=== PATIENT | male | born 1965 | race Caucasian/White ===

== ENCOUNTER → 2018-05-12 | Outpatient (CLI) | payer BC ==
[~2018-05-12] MED LIST: ASPI325T8 PO; ATOR10TA60 PO; EMPA25TA PO; IOHEXOL 180 MG/ML 10 ML VIAL. ONE; LEVO75TA5 PO; METF10007 PO; OMEG1CAP6 PO; OMEP20CA9 PO; SITA100T PO; methylPREDNISolone ACETATE 40 MG/ML VIAL. ONE; methylPREDNISolone ACETATE 80 MG/ML VIAL. ONE
--- NOTE | 2018-05-12 15:38 | PAIN ---
DATE OF SERVICE: 05/12/2018 INITIAL CONSULTATION FOR PAIN CLINIC CHIEF COMPLAINT: Low back and right lower extremity pain. HISTORY OF PRESENT ILLNESS: This is a 53-year-old male who presents with history of pain for about a year, worse over the past month or so in the low back and right lower extremity, radiating to the posterior gluteus, posterior lateral thigh, anterior thigh, medial thigh, medial lower leg, worse with walking, standing and change in positions. The patient reports it is worse in the evening as the day goes on. Occasionally, it wakes him from sleep, but not every night, does not affect his bowel or bladder control, but does affect his ability to walk, especially with standing and initially standing when he is up from a seated position is difficult. The patient reports no symptoms on the left lower extremity, no loss of motor function, but significant fatigability with the right leg with walking and standing. The patient did have some chiropractic treatment. He is still doing some exercises, which is not significantly helpful, has not had any formal physical therapies or other modalities. The patient did have MRI scan of the lumbar spine showing at L4-L5 a small annular disk bulge lateralized to the left, facet hypertrophy resulting in moderate to severe narrowing of left neural foramen and mild narrowing of the central canal and right neural foramen. The patient reports a disability rate from 0-10, 10 being the worst, is a 5 with family and home responsibilities and occupation, 8 with recreational activities, 6 with social activity, sexual behavior, self-care and life support activities. The patient reports no loss of motor function once again, but significant fatigability worse with time. PAST MEDICAL HISTORY: Significant for hearing loss, type 2 diabetes, arthritis. PREVIOUS SURGERY: Include two cervical diskectomies and fusion in 2011 and then again in 2012, previous tonsillectomy, cholecystectomy and appendectomy. CURRENT MEDICATIONS: Include Januvia, metformin, levothyroxine, Jardiance, omega fish oil, omeprazole, atorvastatin. ALLERGIES: The patient has no known drug allergies. FAMILY HISTORY: Significant for no major medical conditions or problems that he is aware of. SOCIAL HISTORY: The patient is not a smoker, drinks alcohol occasionally, maybe 2 drinks a day at the most. The patient is not using any illegal, illicit or recreational drugs. 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 REVIEW OF SYSTEMS: The patient's review of systems is positive for those items mentioned in history of present illness. All systems reviewed and otherwise negative. It is complete, full and well documented on the patient's chart. PHYSICAL EXAMINATION: VITAL SIGNS: The patient's blood pressure 144/95, pulse 79, respirations 16, temperature 98.2 degrees Fahrenheit, height is 6 feet, weight is 255 pounds. GENERAL: The patient is awake, alert, oriented, appropriate, very pleasant demeanor. HEENT: Head shows normocephalic, atraumatic. Extraocular movements are intact and symmetrical. Oral cavity: Mucous membranes moist and pink. Dentition is intact. NECK: Shows anterior throat supple without palpable lymphadenopathy noted. Swallow reflex is symmetrical. CHEST: Shows normal with inspection. Breath sounds clear to auscultation bilaterally. HEART: Shows S1, S2 clear. No murmurs auscultated. ABDOMEN: Soft, nontender, nondistended. No palpable organomegaly is noted. No rebound or guarding demonstrated. BACK: Shows spine grossly in the midline. Normal appearing thoracic kyphosis, cervical lordotic curvature and lumbar lordotic curvature. Lumbar paraspinous muscle shows symmetrical on inspection, on palpation shows some moderate tenderness diffusely bilaterally in the low lumbar distribution, but without radiation. The patient shows no tenderness over the spinous processes, sacrum or sacroiliac regions. The patient has good rotational motion of lumbar spine, both laterally greater than 10 degrees right and left as well as extension greater than 10 degrees, forward flexion 45 degrees without significant pain reported. EXTREMITIES: Lower extremities show deep tendon reflexes at 2+ in the patellar, 1+ tendo-calcaneus tendons are equal. Motor exam is approximately 4 on a scale of 5 with right ankle and 5/5 on the left, 5/5 quadriceps and hamstring flexion, right and left. Peripheral pulses are 1+ posterior tibial. No peripheral edema is noted bilaterally. The patient's straight leg raise is noted to be mildly positive on the right at about 40 degrees, decreased with knee flexion, left side is negative. Gaenslen's and Joe's maneuvers are negative bilaterally as well. The patient is able to stand and stand on his toes without significant difficulty or loss of balance, walks with a normal appearing gait, does not appear to favor the right or left lower extremity significantly, not using any assistive device to ambulate. The patient's skin is warm and dry, good turgor. No edema. No sores, rashes or bruising. IMPRESSION: This is a 53-year-old male with, 1. Approximate 1-year history of low back and right lower extremity pain in a radicular fashion. 2. MRI scan of lumbar spine as noted. 3. Type 2 diabetes. 4. Arthritis. PLAN: Options were discussed with the patient including conservative medical management, physical therapy, interventional techniques and and he would like to pursue interventional techniques. We discussed a lumbar epidural steroid injection using description as well as anatomical models to describe the procedure. Risks were then discussed including, but not limited to bleeding, infection, possibility of epidural hematoma, subsequent neurological compromise, dural puncture, headaches, spinal cord and/or nerve damage, side effects of steroid medication and poor results regarding pain control. The patient understands and wished to proceed. The patient will return to the clinic in approximately 2 weeks for followup, was counseled on return appointment, activity level and side effects to be aware of. DIAGNOSES: Lumbar radiculopathy with lumbar degenerative disk disease. PROCEDURES: Lumbar epidural steroid injection, translaminar approach at L4-L5 level using C-arm fluoroscopic guidance under sterile prep and drape using local anesthetic. MEDICATION INJECTED: A total of 120 mg Depo-Medrol plus 10 mL of preservative-free normal saline and 2 mL of Isovue for contrast. CONDITION AT DISCHARGE: Stable. The patient tolerated the procedure well, had no complications. PAOLA KEATING MD DR: GAYATRI/anaid JOB#: [id number] / [id number] CAITLIN Beverly APRN
== END | disposition home or self-care (01) ==
LOC: PNCL 08:00
PROVIDERS: ATTEND Anesthesiology
DX: M51.16 Intervertebral disc disorders with radiculopathy, lumbar region (principal); E11.9 Type 2 diabetes mellitus without complications; Z88.0 Allergy status to penicillin; M19.90 Unspecified osteoarthritis, unspecified site; H91.90 Unspecified hearing loss, unspecified ear; Z90.49 Acquired absence of other specified parts of digestive tract; Z98.890 Other specified postprocedural states; Z79.84 Long term (current) use of oral hypoglycemic drugs; Z79.899 Other long term (current) drug therapy; Z98.1 Arthrodesis status; Z72.89 Other problems related to lifestyle
CPT/HCPCS: 62323; J1030; J1040; Q9965

== ENCOUNTER → 2018-06-09 | Outpatient (CLI) | payer BC ==
[~2018-06-09] MED LIST changes: -IOHEXOL 180 MG/ML 10 ML VIAL. ONE; -methylPREDNISolone ACETATE 40 MG/ML VIAL. ONE; -methylPREDNISolone ACETATE 80 MG/ML VIAL. ONE
--- NOTE | 2018-06-09 10:07 | PAIN ---
DATE OF SERVICE: 06/09/2018 PROGRESS NOTE FOR PAIN CLINIC DIAGNOSIS: Lumbar radiculopathy with lumbar degenerative disk disease. HISTORY OF PRESENT ILLNESS: The patient is a 53-year-old male who returns for followup status post lumbar epidural steroid injection x 1. The patient reports 100% improvement in the back and right lower extremity pain has completely gone. The patient reports it has been gone about 2 days after the procedure. The patient reports the pain is 0 on a scale of 10 at average, worst and its least. He has increased his activity with greater ease and comfort, walking, able to do work activities, household activities, traveling, sleeping at night, does not awaken him from sleep. No pain in the leg and no pain in the back. No new bowel or bladder incontinence or other complaints. The patient is very pleased with his progress and reports no new changes or other complaints. PHYSICAL EXAMINATION: VITAL SIGNS: The patient's blood pressure 152/96, pulse 79, respirations 18 and temperature 98.0 degrees Fahrenheit. Height 6 feet and weight is 252 pounds. GENERAL: The patient is awake, alert, oriented, appropriate and very pleasant demeanor. HEENT: Head shows normocephalic and atraumatic. Extraocular movements are intact and symmetrical. Oral cavity: Mucous membranes moist and pink. Dentition is intact. NECK: Shows anterior throat supple without palpable lymphadenopathy noted. Swallow reflex symmetrical. CHEST: Shows normal on inspection. Breath sounds clear to auscultation bilaterally. HEART: Shows S1 and S2 clear. No murmurs auscultated. ABDOMEN: Soft, nontender and nondistended. No palpable organomegaly is noted. No rebound or guarding demonstrated. BACK: Shows spine grossly in the midline. Normal appearing thoracic kyphosis and lumbar lordotic curvature. Lumbar paraspinous muscle shows symmetrical on inspection and on palpation shows some moderate tenderness diffusely but only diffusely with palpation. The patient has good rotational motion. No radiation of pain, both laterally as well as extension and flexion. EXTREMITIES: Lower extremities show deep tendon reflexes at 2+ in the patellar, 1+ tendo-calcaneus tendons. Motor exam is strong with 5/5 dorsiflexion, extension, quadriceps and hamstring flexion symmetrical on exam today. The patient shows 1+ posterior tibial pulses and no peripheral edema bilaterally. Options were discussed with the patient. The patient's old chart was reviewed as well as his current medication regimen updated. Current review of systems updated today as well. We will hold on any further injections at that time. The patient did quite well and was encouraged to increase his activity as tolerated. We talked about body mechanics as well as lifting precautions and exercise, stretching and strengthening exercises as well. The patient will continue with these and follow up at this time on as needed basis. PAOLA KEATING MD DR: GAYATRI/anaid JOB#: [id number] / [id number]
== END | disposition home or self-care (01) ==
LOC: PNCL 08:39
PROVIDERS: ATTEND Anesthesiology
DX: M51.16 Intervertebral disc disorders with radiculopathy, lumbar region (principal)
CPT/HCPCS: G0463

== ENCOUNTER → 2018-10-12 | Outpatient (CLI) | payer BC ==
[~2018-10-12] MED LIST changes: +OMEP20CA10 PO; -OMEP20CA9 PO
--- NOTE | 2018-10-12 14:10 | CARD ---
MR#: [id number] Date of Study: 10/12/2018 Ordering Physician: AIDEN AVENDAÑO, Referring Physician: AIDEN AVENDAÑO, Tech: Robina Uribe JEREMY APPROVED REPORT EXAM: Two-dimensional and M-mode echocardiogram with Doppler and color Doppler. Other Information Quality : Good INDICATION Pulmonary Embolism 2D DIMENSIONS RVDd2.6 (2.9-3.5cm)Left Atrium(2D)4.4 (1.6-4.0cm) IVSd1.0 (0.7-1.1cm)Aortic Root(2D)3.1 (2.0-3.7cm) LVDd4.6 (3.9-5.9cm)LVOT Diameter2.5 (1.8-2.4cm) PWd1.0 (0.7-1.1cm)LVDs3.5 (2.5-4.0cm) FS (%) 24.2 %SV47.8 ml LVEF(%)50.0 (>50%) Aortic Valve AoV Peak Elias.99.3cm/sAoV VTI17.6cm AO Peak GR.3.9mmHgLVOT Peak Elias.102.6cm/s AO Mean GR.2mmHgAVA (VMAX)4.90cm2 CARYL (VTI)5.70cm2 Mitral Valve MV E Oeyheddj26.7cm/sMV DECEL ZITA028no MV A Ldtegviq93.6cm/sE/A Ratio0.9 Tricuspid Valve TR P. Jwhmqahh840ke/sRAP LUTHGTRR9lwKp TR Peak Gr.34yuTqONCO94maYt Pulmonary Vein S1 Ltufwhmx11.2cm/sD2 Ephxtpas51.2cm/s LEFT VENTRICLE The left ventricle is normal size. There is normal left ventricular wall thickness. The left ventricu lar systolic function is normal. The Ejection Fraction is 50-55%. There is normal LV segmental wall m otion. Transmitral Doppler flow pattern is Grade I-abnormal relaxation pattern. RIGHT VENTRICLE The right ventricle is normal size. The right ventricular systolic function is normal. ATRIA The left atrium is mildly dilated. The right atrium size is normal. The interatrial septum is intact with no evidence for an atrial septal defect or patent foramen ovale as noted on 2-D or Doppler imagi ng. AORTIC VALVE The aortic valve is calcified but opens well. Doppler and Color Flow revealed no significant aortic r egurgitation. There is no significant aortic valvular stenosis. MITRAL VALVE The mitral valve is calcified but opens well. There is no evidence of mitral valve prolapse. There is no mitral valve stenosis. Doppler and Color Flow revealed no mitral valve regurgitation noted. TRICUSPID VALVE The tricuspid valve is normal in structure and function. Doppler and Color Flow revealed trace tricus pid regurgitation. The PA pressure was estimated at 27 mmHg. There is no tricuspid valve stenosis. PULMONIC VALVE The pulmonic valve is not well visualized. Doppler and Color Flow revealed no pulmonic valvular regur gitation. There is no pulmonic valvular stenosis. GREAT VESSELS The aortic root is normal in size. The ascending aorta is normal in size. The IVC is normal in size a nd collapses >50% with inspiration. PERICARDIAL EFFUSION There is no evidence of significant pericardial effusion. Critical Notification Critical Value: No <Conclusion> The left ventricular systolic function is normal. The Ejection Fraction is 50-55%. There is normal LV segmental wall motion. Doppler and Color Flow revealed trace tricuspid regurgitation. The PA pressure was estimated at 27 mmHg. There is no evidence of significant pericardial effusion. Signed by : Ferny Daley, Electronically Approved : 10/12/2018 14:10:26
== END | disposition home or self-care (01) ==
LOC: ECHO 12:31
PROVIDERS: ATTEND Internal Medicine Cardiovascular Disease
DX: I08.0 Rheumatic disorders of both mitral and aortic valves (principal); I26.99 Other pulmonary embolism without acute cor pulmonale
CPT/HCPCS: 93306

== ENCOUNTER → 2018-12-08 | Outpatient (CLI) | payer BC ==
[~2018-12-08] MED LIST changes: +BUPIVACAINE MPF 0.25% 10 ML VIAL. ONE; +IOHEXOL 180 MG/ML 10 ML VIAL. ONE; +methylPREDNISolone ACETATE 80 MG/ML VIAL. ONE
--- NOTE | 2018-12-09 04:16 | PAIN ---
DATE OF SERVICE: 12/08/2018 PROGRESS NOTE FOR PAIN CLINIC DIAGNOSES: 1. Lumbar radiculopathy with lumbar degenerative disk disease. 2. Right knee joint pain with primary osteoarthritis. HISTORY OF PRESENT ILLNESS: The patient is a 53-year-old male who returns for followup status post lumbar epidural steroid injection x 1. The patient reports he did very well with about 100% improvement with the low back pain, this was in 05/2018. The pain still fairly well controlled in the low back itself. His main complaint is right knee is very tender with weightbearing, standing, walking, especially putting all his weight on one leg on his right side with stepping up stairs or curbs. The patient reports it is aching and sharp at the knee, aching into the calf as well as radiating down into the hcavez and the calf with walking and standing. The patient reports in the morning it is not too bad but as the day goes on, he is on his feet and more of the day, it becomes more noticeable, feels full, the pain in the popliteal area as well. The patient reports the pain is 10 on a scale of 10 at its worst, on average in the past week is a 6 and in the past week, it has been 0 at its least and is 0 today with sitting and with standing becomes a 5. The patient reports no new motor or sensory deficits and no new changes. PHYSICAL EXAMINATION: VITAL SIGNS: The patient's blood pressure is 140/98, pulse 75, respirations 18 and temperature 98.0 degrees Fahrenheit. Height is 6 feet and weight is 246 pounds. GENERAL: The patient is awake, alert, oriented, appropriate and very pleasant demeanor. HEENT: Head shows normocephalic and atraumatic. Extraocular movements are intact and symmetrical. Oral cavity: Mucous membranes moist and pink. Dentition is intact. NECK: Shows anterior throat supple without palpable lymphadenopathy noted. Swallow reflex symmetrical. CHEST: Shows normal on inspection. Breath sounds are clear to auscultation bilaterally. HEART: Shows S1 and S2 clear. No murmurs auscultated. ABDOMEN: Soft, nontender and nondistended. No palpable organomegaly is noted. No rebound or guarding demonstrated. BACK: Shows spine grossly in the midline. Normal appearing thoracic kyphosis and lumbar lordotic curvature. Lumbar paraspinous musculature shows symmetrical on inspection with palpation shows some very mild tenderness with deeper palpation in the low lumbar distribution only but only very mild without radiation. The patient shows full rotational motion of the lumbar spine, both laterally as well as extension and flexion without difficulty. EXTREMITIES: The patient's lower extremities show deep tendon reflexes at 2+ in the patellar, 1+ tendo-calcaneus tendons. Motor exam is strong with 5/5 dorsiflexion, extension, quadriceps and hamstring flexion. The patient's right knee shows some mild tenderness with palpation on the lateral aspect of the lateral collateral ligament and some mild tenderness over the medial collateral ligament only mildly so. No specific tenderness in the popliteal fossa. No masses are palpated. The patient does have good popliteal pulses at 2+. No edema is noted. Options were discussed with the patient. The patient's old chart was reviewed as well as his current medication regimen updated. Current review of systems updated today as well. We will proceed with a right intra-articular knee joint injection with fluoroscopic guidance. Risks were discussed including but not limited to bleeding, infection, possibility of intravascular injection sequelae, spread of local anesthetic and numbness, side effects of steroid medication, exposure to fluoroscopy and poor results regarding pain control. The patient understands and wished to proceed. The patient will return to the clinic in approximately 2 weeks or as necessary, I would like to call for his next appointment, was counseled as to return appointment, activity level as well as side effects to be aware of. DIAGNOSIS: Primary osteoarthritis, right knee joint with right knee joint pain. PROCEDURE: Right intra-articular knee joint injection using C-arm fluoroscopic guidance under sterile prep and drape using local anesthetic. MEDICATION INJECTED: A total of 3 mL of 0.25% bupivacaine and 80 mg Depo-Medrol and 2 mL of contrast. CONDITION AT DISCHARGE: Stable. The patient tolerated the procedure well and had no complications. PAOLA KEATING MD DR: GAYATRI/anaid JOB#: [id number] / [id number]
== END ==
LOC: PNCL 11:01
PROVIDERS: ATTEND Anesthesiology
DX: M17.11 Unilateral primary osteoarthritis, right knee (principal); M25.561 Pain in right knee
CPT/HCPCS: 20610; 77002; J1040; J3490; Q9965

== ENCOUNTER → 2019-10-12 | Outpatient (CLI) | payer BC ==
[~2019-10-12] MED LIST changes: -BUPIVACAINE MPF 0.25% 10 ML VIAL. ONE; -IOHEXOL 180 MG/ML 10 ML VIAL. ONE; -OMEP20CA10 PO; +OMEP20CA16 PO; -methylPREDNISolone ACETATE 80 MG/ML VIAL. ONE
--- NOTE | 2019-10-12 08:32 | RAD ---
EXT NON VASC LEFT History: Left leg soft tissue nodule Comparison: None. Findings: Multiple sonographic images of the site of concern of the medial upper left calf region are submitted. In this region, there is oblong focus of relative hyperechogenicity about 1.6 x 0.9 x 1.2 cm in size, somewhat heterogeneous appearance. This is not associated with significant internal vascularity on color Doppler imaging. Impression: 1. There is a hyperechoic, avascular nodule at site of concern of the left medial upper calf region, primary consideration a lipoma. If this is new or getting larger, MRI evaluation could be warranted. Electronically signed by: Adeel Jacobsen MD (10/12/2019 8:29 AM) [id number]
== END ==
LOC: US 07:32
PROVIDERS: ATTEND Nurse Practitioner Family
DX: M79.89 Other specified soft tissue disorders (principal)
CPT/HCPCS: 76881

== ENCOUNTER → 2021-02-22 | Outpatient (CLI) | payer BC ==
--- NOTE | 2021-02-22 12:49 | CARD ---
MR#: [id number] Date of Study: 02/22/2021 Ordering Physician: AIDEN AVENDAÑO, Referring Physician: AIDEN AVENDAÑO, Chloe: Lucio Wall [facility] APPROVED REPORT EXAM: Two-dimensional and M-mode echocardiogram with Doppler and color Doppler. Other Information Quality : AverageHR: 78bpm Rhythm : NSR INDICATION Peripheral Edema RISK FACTORS Hypertension Diabetes 2D DIMENSIONS Left Atrium(2D)3.8 (1.6-4.0cm)IVSd0.9 (0.7-1.1cm) Aortic Root(2D)3.5 (2.0-3.7cm)LVDd4.8 (3.9-5.9cm) LVOT Diameter2.4 (1.8-2.4cm)PWd0.9 (0.7-1.1cm) LVDs2.9 (2.5-4.0cm)FS (%) 40.2 % SV77.7 mlLVEF(%)70.7 (>50%) Aortic Valve AoV Peak Elias.144.8cm/sAoV VTI29.4cm AO Peak GR.8.4mmHgLVOT Peak Elias.105.9cm/s AO Mean GR.4mmHgAVA (VMAX)3.18cm2 Mitral Valve MV E Pemim[place]k88.6cm/sMV E Peak Gr.3mmHg MV DECEL [id number] A Ratqibqd22.2cm/s MV E Mean Gr.2mmHgE/A Ratio0.9 Pulmonary Valve PV Peak Dhojxpmx358.8cm/s Tricuspid Valve TR P. Jfsxneaw067ot/sTR Peak Gr.20mmHg Pulmonary Vein S1 Vkoskklm24.3cm/sD2 Ekkjuvvj28.5cm/s LEFT VENTRICLE The left ventricle is normal size. There is normal left ventricular wall thickness. The left ventricu lar systolic function is mildly reduced. EF 40-45% Basal to mid lateral and inferior wall hypokinesis . Tissue Doppler imaging reveals mild left ventricular diastolic dysfunction. No left ventricle throm bus noted on this study. There is no ventricular septal defect visualized. There is no left ventricul ar aneurysm. There is no mass noted in the left ventricle. RIGHT VENTRICLE The right ventricle is normal size. There is normal right ventricular wall thickness. The right ventr icular systolic function is normal. ATRIA The left atrium size is normal. The right atrium size is normal. The interatrial septum is intact wit h no evidence for an atrial septal defect or patent foramen ovale as noted on 2-D or Doppler imaging. AORTIC VALVE The aortic valve is mildly sclerotic. Doppler and Color Flow revealed no significant aortic regurgita tion. There is no significant aortic valvular stenosis. There is no aortic valvular vegetation. MITRAL VALVE The mitral valve is normal in structure and function. There is no evidence of mitral valve prolapse. There is no mitral valve stenosis. Doppler and Color-flow revealed trace mitral regurgitation. TRICUSPID VALVE The tricuspid valve is normal in structure and function. Doppler and Color Flow revealed no tricuspid valve regurgitation noted. There is no tricuspid valve prolapse or vegetation. There is no tricuspid valve stenosis. PULMONIC VALVE Doppler and Color Flow revealed no pulmonic valvular regurgitation. There is no pulmonic valvular noe nosis. GREAT VESSELS The aortic root is normal in size. The ascending aorta is normal in size. The IVC is normal in size a nd collapses >50% with inspiration. PERICARDIAL EFFUSION There is no pleural effusion. There is no evidence of significant pericardial effusion. Critical Notification Critical Value: No <Conclusion> The left ventricular systolic function is mildly reduced. EF 40-45% Basal to mid lateral and inferior wall hypokinesis. Signed by : Chon Norman, Electronically Approved : 02/22/2021 12:49:00
--- NOTE | 2021-02-22 13:09 | RAD ---
MR#: [id number] Date of Study: 02/22/2021 Ordering Physician: AIDEN AVENDAÑO, Referring Physician: AIDEN AVENDAÑO, Tech: Zac Alvarado MBA, RDMS, RVT, RDCS, RTR APPROVED REPORT Patient Location : OUT-PATIENT Indications Lower Extremity Edema : Bilateral Findings Grayscale images of the saphenofemoral junction and the superficial veins both lower extremities are unremarkable without any evidence of thrombus. Spectral waveform and color duplex imaging was performed. The right greater saphenous vein measured 5.8 mm at the saphenofemoral junction and did not show any reflux. The left greater saphenous vein m easured 5.7 mm at the saphenofemoral junction and did not show any reflux. The lesser saphenous vein bilaterally did not show any significant reflux. Critical Notification Critical Value: No <Conclusion> No significant insufficiency involving bilateral greater and lesser saphenous veins. Signed by : Ferny Daley, Electronically Approved : 02/22/2021 13:09:11
--- NOTE | 2021-02-22 13:12 | RAD ---
MR#: [id number] Date of Study: 02/22/2021 Ordering Physician: AIDEN AVENDAÑO, Referring Physician: AIDEN AVENDAÑO, Tech: Zac Alvarado MBA, RDMS, RVT, RDCS, RTR APPROVED REPORT Bilateral Lower Extremity Venous Study for DVT Patient Location: OUT-PATIENT Indications Lower Extremity Edema: Bilateral Vein Imaging (Right) CFV (R): Compressible SFJ (R): Compressible FEM (R): Compressible POP (R): Compressible DFV (R): Compressible PTV (R): Spontaneous GSV (R): Spontaneous Peroneals (R): Spontaneous Vein Imaging (Left) CFV (L): Compressible SFJ (L): Compressible FEM (L): Compressible POP (L): Compressible DFV (L): Compressible PTV (L): Spontaneous GSV (L): Spontaneous Peroneals (L): Spontaneous Doppler Evaluation (Right) CFV (R): Spontaneous POP (R):Spontaneous Doppler Evaluation (Left) CFV (L):Spontaneous POP (L):Spontaneous Findings Grayscale images of bilateral lower extremity deep veins show normal appearance with fully compressib le veins. Spectral waveforms and color Doppler flow analysis within normal limits. No evidence of d eep venous thrombosis. Critical Notification Critical Value: No <Conclusion> Bilateral lower extremity venous ultrasound did not show any evidence for deep venous thrombosis. Signed by : Ferny Daley, Electronically Approved : 02/22/2021 13:12:27
== END ==
LOC: ECHO 07:35
PROVIDERS: ATTEND Internal Medicine Cardiovascular Disease
DX: I35.8 Other nonrheumatic aortic valve disorders (principal); R60.9 Edema, unspecified; R06.09 Other forms of dyspnea
CPT/HCPCS: 93306; 93970

== ENCOUNTER → 2021-05-30 | Outpatient (CLI) | payer BC ==
--- NOTE | 2021-05-30 17:45 | RAD ---
MR#: [id number] Date of Study: 05/30/2021 Ordering Physician: AIDEN AVENDAÑO, Referring Physician: MANJIT PALACIO Tech: DOMINICK Chaves ARRT (R) (N) APPROVED REPORT Test Type: Exercise Stress Nurse/Tech: Alexandra GUEVARA Test Indications: BARRAZA Cardiac History: ASA, HTN, high cholesterol, DM Medications: ASA, See EMR Medical History: Hx of PE. See list. Resting ECG: SR Resting Heart Rate: 80 bpm Resting Blood Pressure: 136/81mmHg Pretest Chest Pain: No chest pain Nurse/Tech Notes Lungs diminished. Clear. S1S2 heart tones. Stress Symptoms No chest pain or symptoms. POST EXERCISE Reason for Termination: Reached target heart rate Target HR: Yes Max HR: 142 bpm 87% of Maximum Predicted HR: 163 bpm Exercise duration: 8:55 min:sec, 3 Stage Exercise capacity: 10METs Max Blood Pressure: 158/84mmHg Blood Pressure response to exercise: Normal blood pressure response during stress. Heart Rate response to exercise: normal response Chest Pain: No. Arrhythmia: No. ST Change: No. INTERPRETATION Stress EKG Conclusion: No evidence of stress-induced EKG changes Imaging Protocol IMAGE PROTOCOL: Rest Tc-99m/stress Tc-99m 1 day Rest: Stress: Viability: Radiopharm.Tc99m [id number] Sestamibi Dose10.4mCi 32.3mCi Img Date 05/30/2021 05/30/2021 Inj-Img [id number]. 60min. Rest Admin Site:IV - Right AntecubitalAdministrator:DOMINICK Chaves, ARRT (R)(N) Stress Admin Site: IV - Right AntecubitalAdministrator: RT Nuria (R)(N) STRESS DATA End Diast. Vol.121.0mlAv. Heart Rate88.0bpm End Syst. Vol.56.0mlCO Index BSA0.0L/min Myocardial Nerc856.0gEject. Zrgjpuuk63.0% Stress Rates Pk. Fill Rate3.09EDV/secLVtime Pk. Fill 198.19msec Pk. Empty Rate4.07ESV/secLVtime Pk. Eject91.57msec 05/06 Pk. Fill0.95EDV/sec Stress Scores Regional WT1.00Summed WT17.00 Regional WM0.00Summed WM5.00 LV Perfusion Small to moderate sized fixed inferior wall perfusion defect suggestive of diaphragmatic attenuation. No obvious ischemia noted. Wall Motion Grossly normal wall motion. LV Perf. Quant 17 Seg. SSS5.00 17 Seg. SRS15.00 17 Seg. SDS0.00 Stress Defect Extent (% LAD)3.80Rest Defect Extent (% LAD)33.80Rev. Defect Extent (% LAD)0.00 Stress Defect Extent (% LCX) 3.80Rest Defect Extent (% LCX)32.50Rev. Defect Extent (% LCX)1.30 Stress Defect Extent (% RCA)11.10Rest Defect Extent (% RCA)40.00Rev. Defect Extent (% RCA)0.00 Stress Defect Extent (% CALEB)7.20Rest Defect Extent (% CALEB)39.10Rev. Defect Extent (% CALEB)0.20 Other Information Quality:Poor Risk Assessment: Low Risk Conclusion 1. No evidence of stress-induced EKG changes. Adequate exercise capacity at 10 metabolic equivalents achieved. 2. Fixed inferior wall perfusion defect suggestive of diaphragmatic attenuation without any obvious e vidence of ischemia 3. Normal ejection fraction, EF 59% 4. Low risk study overall. Signed by : Chon Norman, Electronically Approved : 05/30/2021 17:45:15
== END ==
LOC: NM 09:00
PROVIDERS: ATTEND Internal Medicine Cardiovascular Disease
DX: R06.09 Other forms of dyspnea (principal)
CPT/HCPCS: 78452; 93017; A9500

== ENCOUNTER → 2021-07-03 | Outpatient (CLI) | payer BC ==
[~2021-07-03] MED LIST changes: -EMPA25TA PO; +EMPA25TA3 PO
--- NOTE | 2021-07-03 11:22 | KCIC ---
XR CHEST 2V INDICATION: Bronchitis, SOA on exertion. COMPARISON STUDY: None. FINDINGS: Lungs: Normal lung volume. No pulmonary mass or consolidation. The tracheobronchial tree and hilar st ructures are normal. Pleura: No pleural effusion or pneumothorax. Heart and Mediastinum: The cardiomediastinal silhouette is normal. The great vessels of the thorax ar e normal. Bones and Soft Tissues: Degenerative changes of the spine. IMPRESSION: No acute cardiopulmonary process. Electronically signed by: Adeel Keller MD (07/03/2021 11:19 AM) [id number]
== END ==
LOC: KCIC 10:51
PROVIDERS: ATTEND Nurse Practitioner Family
DX: J40 Bronchitis, not specified as acute or chronic (principal); R06.09 Other forms of dyspnea
CPT/HCPCS: 71046